=== PATIENT | male | born 1965 | race Caucasian/White ===

== ENCOUNTER 2020-12-06 09:22 | Day surgery (SDC) | payer OTHER ==
[2020-12-02 12:39] VITALS: BMI 32.8
[2020-12-06] MEDS ORDERED: PROPOFOL 20 ML ONE ×3 (11:37)
[2020-12-06 13:38] VITALS: BP 118/70; PULSE 66; TEMP 97.9
== END 2020-12-06 13:30 | disposition home or self-care (01) ==
LOC: FASU-ENDO 09:22
PROVIDERS: ATTEND Internal Medicine Gastroenterology
PROC: 0DBP8ZX Excision of Rectum, Via Natural or Artificial Opening Endoscopic, Diagnostic (ICD-10-PCS; principal; 2020-12-06 12:03)
DX: Z12.11 Encounter for screening for malignant neoplasm of colon (principal); K62.1 Rectal polyp
CPT/HCPCS: 82962; 88305-TC